=== PATIENT | male | born 1955 | race Caucasian/White ===

== ENCOUNTER → 2018-01-07 | Outpatient (CLI) | payer OTHER ==
[2018-01-07 11:49] LABS: BASOPHILS % (AUTO) 0.8 % (0.0-2.0); EOSINOPHILS # (AUTO) 0.1 K/uL (0.0-0.7); EOSINOPHILS % (AUTO) 2.3 % (0.0-7.0); HEMATOCRIT 44.2 % (36.7-47.1); LYMPHOCYTES # (AUTO) 1.6 K/uL (20.0-40.0); LYMPHOCYTES % (AUTO) 29.9 % (20.5-51.5); MEAN CORPUSCULAR HEMOGLOBIN 32.1 uug (23.8-33.4); MEAN CORPUSCULAR HGB CONC 34 g/dL (32.5-36.3); MEAN CORPUSCULAR VOLUME 94.4 fL (73.0-96.2); MONOCYTES # (AUTO) 0.3 K/uL (2.0-10.0); MONOCYTES % (AUTO) 6.1 % (0.0-11.0); NEUTROPHILS # (AUTO) 3.3 K/uL (1.8-8.9); NEUTROPHILS % (AUTO) 60.9 % (38.5-71.5); PLATELET COUNT (AUTO) 226 K/uL (152-348); RED BLOOD CELL COUNT(AUTO) 4.68 MIL/uL (4.06-5.63); WHITE BLOOD COUNT (AUTO) 5.5 K/uL (3.6-10.2)
[2018-01-07 11:50] LABS: *BILIRUBIN,URIN NEGATIVE (NEGATIVE); *BLOOD, URINE NEGATIVE (NEGATIVE); *CLARITY,URINE CLEAR (CLEAR); *COLOR,URINE YELLOW (YELLOW); *KETONES,URINE NEGATIVE (NEGATIVE); *PROTEIN,URINE NEGATIVE (NEGATIVE); LEUKOCYTE ESTERASE ,URINE NEGATIVE (NEGATIVE); NITRITE, URINE NEGATIVE (NEGATIVE); UGLUCOSE NEGATIVE (NEGATIVE)
[2018-01-07 11:56] LABS: CREATININE 1.1 mg/dL (0.6-1.3); POTASSIUM 3.6 mmol/L (3.5-5.1)
[2018-01-07 12:02] LABS: BACTERIA,URINE NONE SEEN /HPF (NONE SEEN); BILIRUBIN,TOTAL 0.5 mg/dL (0.2-1.0); MUCUS,URINE FEW /LPF (0-FEW); RBC,URINE 0-3 /HPF (0-3); SQUAMOUS EPITHELIAL CELL,UR FEW /HPF (NONE SEEN); TOTAL PROTEIN, SERUM 7.4 g/dL (6.4-8.2); WBC,URINE 0-3 /HPF (0-3)
== END | disposition home or self-care (01) ==
LOC: SURGERY 11:05 → MERGE 11:05
PROVIDERS: ATTEND Orthopaedic Surgery
DX: Z01.818 Encounter for other preprocedural examination (principal); S83.242A Other tear of medial meniscus, current injury, left knee, initial encounter; I45.10 Unspecified right bundle-branch block; R94.31 Abnormal electrocardiogram [ECG] [EKG]; Z95.1 Presence of aortocoronary bypass graft
CPT/HCPCS: 36415; 71045; 80053; 81001; 85025; 85730; 93005; A4663

== ENCOUNTER 2018-01-10 09:19 | Day surgery (SDC) | payer OTHER ==
[2018-01-10] MEDS ORDERED: KETOROLAC TROMETHAMINE 30 MG INJ IM ONE (09:20)
[2018-01-10] MEDS ORDERED: ONDANSETRON 4 MG/2 ML VIAL IV ONE (09:20)
[2018-01-10] MEDS ORDERED: PROPOFOL 200 MG/20 ML BOTTLE IV ONE (09:20)
[2018-01-10] MEDS ORDERED: LIDOCAINE HCL 2% 20 ML VIAL MC ONE (09:20)
[2018-01-10] MEDS ORDERED: SEVOFLURANE 250 ML BOTTLE IH ONE (09:20)
[2018-01-10] MEDS ORDERED: DEXAMETHASONE SOD PHOSPHATE 4 MG INJ IV ONE (09:20)
[2018-01-10] MEDS ORDERED: IV LACTATED RINGERS SOLUTION 1,000 ML BAG IV ONE (09:20)
[2018-01-10] MEDS ORDERED: CEFAZOLIN 1 G VIAL MC ONE (09:20)
[2018-01-10] MEDS ORDERED: MORPHINE SULFATE PF 10 MG/10 ML AMPUL IV ONE (11:40)
[2018-01-10] MEDS ORDERED: BUPIVACAINE 0.25% 30 ML VIAL ONE (11:40)
[2018-01-10] MEDS ORDERED: HYDROMORPHONE 2 MG/1 ML DISP.SYRIN ONE (12:12)
[2018-01-10] MEDS ORDERED: FENTANYL CITRATE 100 MCG/2 ML AMPUL ONE (13:55)
[2018-01-10] MEDS ORDERED: HYDROCODONE/APAP 5-325MG TABLET ONE (15:16)
== END 2018-01-10 15:50 | disposition home or self-care (01) ==
LOC: EDBD → DS 09:19
PROVIDERS: ATTEND Orthopaedic Surgery
DX: M23.201 Derangement of unspecified lateral meniscus due to old tear or injury, left knee (principal); M23.212 Derangement of anterior horn of medial meniscus due to old tear or injury, left knee; M94.262 Chondromalacia, left knee; M65.862 Other synovitis and tenosynovitis, left lower leg
CPT/HCPCS: J0690; J1100; J1170; J1885; J2274; J2405; J3010; J3490; J7120